=== PATIENT | male | born 1965 | race Caucasian/White ===

== ENCOUNTER 2018-08-09 13:09 | Inpatient (IN) ==
[2018-08-09] MEDS ORDERED: TUBERSOL ID ONE (15:12)
[2018-08-09] MEDS ORDERED: DESYREL PO PRN (15:12)
[2018-08-09] MEDS ORDERED: TYLENOL PO PRN (15:12)
[2018-08-09] MEDS ORDERED: PHENOBARBITAL IV PRN (15:12)
[2018-08-09] MEDS ORDERED: ZOFRAN IM PRN (15:12)
[2018-08-09] MEDS ORDERED: MOTRIN PO PRN (15:12)
[2018-08-09] MEDS ORDERED: MAALOX PLUS LIQUID PO PRN (15:12)
[2018-08-09] MEDS ORDERED: NICOTINE GUM BUCCAL PRN (15:12)
[2018-08-09] MEDS ORDERED: D5W 1,000 ML IV PRN (15:12)
[2018-08-09] MEDS ORDERED: SENOKOT PO PRN (15:12)
[2018-08-09] MEDS ORDERED: SEROQUEL PO PRN (15:12)
[2018-08-09] MEDS ORDERED: ZOFRAN ODT PO PRN (15:12)
[2018-08-09] MEDS ORDERED: IMODIUM PO PRN (15:12)
[2018-08-09] MEDS ORDERED: ZOFRAN IV PRN (15:12)
[2018-08-09] MEDS ORDERED: DULCOLAX PR PRN (15:12)
[2018-08-09 15:29] LABS: URINE SOURCE CLEAN CATCH
[2018-08-09] MEDS: NICODERM PATCH TD PRN (15:32)
[2018-08-09 15:46] LABS: BILIRUBIN URINE NEGATIVE (NEGATIVE); BLOOD URINE NEGATIVE (NEGATIVE); CLARITY CLEAR (CLEAR); COLOR YELLOW; GLUCOSE URINE NEGATIVE (NEGATIVE); KETONE URINE NEGATIVE (NEGATIVE); LEUKOCYTES URINE NEGATIVE (NEGATIVE); NITRITE URINE NEGATIVE (NEGATIVE); PH URINE 6.5; PROTEIN URINE NEGATIVE (NEGATIVE); UROBILINOGEN URINE NORMAL
[2018-08-09 15:47] LABS: HEMATOCRIT 38.9 % (42.0-52.0); MCH 34.2 PG (27-31); MCV 95.1 FL (81-99); MPV 9.2 FL (7.4-10.4); RBC 4.09 XMIL (4.7-6.1); RDW 12.5 % (11.5-14.5); WBC 6.92 X1000 (4.8-10.8)
[2018-08-09 15:50] LABS: UR AMPHETAMINES QUAL NONE DETECTED (NONE DETECT); UR BARBITUATES QUAL NONE DETECTED (NONE DETECT); UR BENZODIAZEPIN QUAL NONE DETECTED (NONE DETECT); UR CANNABINOIDS QUAL NONE DETECTED (NONE DETECT); UR COCAINE QUAL NONE DETECTED (NONE DETECT); UR METHADONE QUAL NONE DETECTED (NONE DETECT); UR METHAMPHETAMINE QUAL NONE DETECTED (NONE DETECT); UR OPIATES QUAL NONE DETECTED (NONE DETECT); UR OXYCODONE QUAL NONE DETECTED (NONE DETECT); UR PCP QUAL NONE DETECTED (NONE DETECT); UR PROPOXYPHENE QUAL NONE DETECTED (NONE DETECT); UR TCA QUAL NONE DETECTED (NONE DETECT)
[2018-08-09] MEDS ORDERED: BENTYL PO PRN (15:53)
[2018-08-09] MEDS ORDERED: ATARAX PO PRN (15:53)
[2018-08-09] MEDS ORDERED: SALINE LOCK IV FLUID XX ONE (15:53)
[2018-08-09] MEDS ORDERED: ROBAXIN PO PRN (15:53)
[2018-08-09 15:56] LABS: AGAP 16; ALKALINE PHOSPHATASE 131 U/L (32-122); AMYLASE 61 U/L (20-200); BUN 5 mg/dL (8-22); CALCIUM 8.1 mg/dL (8.8-10.2); CHLORIDE 93 mmol/L (98-107); COSMO 258; CREATININE 0.5 mg/dL (0.7-1.2); ESTIMATED GFR > 60; GLUCOSE 72 mg/dL (70-104); GOT 264 U/L (10-34); GPT 219 U/L (10-44); LIPASE 131 U/L (13-60); POTASSIUM 4.2 mmol/L (3.5-5.1); SODIUM 131 mmol/L (136-145); TCO2 22 mmol/L (25-35); TOTAL PROTEIN 6.9 g/dL (6.3-8.3)
[2018-08-09 16:03] LABS: INR 0.88; PROTIME 12.4 Seconds (11.0-16.0)
[2018-08-09] MEDS: LIBRIUM PO SCH ×2 (17:00→21:48)
[2018-08-09] MEDS ORDERED: M.V.I.-12 10 ML, FOLIC ACID 1 MG, MAGNESIUM SULFATE 1 GM, THIAMINE 100 MG in NS 1,000 ML IV ONE (17:00)
--- NOTE | 2018-08-09 23:49 | HISTORY AND PHYSICAL ---
CHIEF COMPLAINT: Nausea, vomiting. HISTORY OF PRESENT ILLNESS: Patient is a 53-year-old male who presented to [facility] program secondary to nausea, vomiting, abdominal pain. Notes that he has been using and abusing alcohol. Symptoms have become too severe. PAST MEDICAL HISTORY: Back injury in 2010, seizures 2 weeks ago that was felt to be alcohol related. SOCIAL HISTORY: Patient is . He is unemployed. Lives at home in [place]. History of blackouts that are likely alcohol related. MEDICATIONS: He is on no current medications. ALLERGIES: Sulfa. REVIEW OF SYSTEMS: CIWA score is elevated at 15 secondary to nausea, vomiting, paroxysmal sweating, tremors, frequent falls, blackouts and seizures that are alcohol related. Denies any chest pain, palpitations. Denies any fevers, chills. Denies dysuria, urinary frequency, urgency. Denies constipation, melena, hematochezia. Denies shortness of breath, cough, congestion. Denies any focalized weakness in extremities. SUBSTANCE ABUSE HISTORY: Patient has not been in treatment before. He has recently had a DUI. He has been drinking for 37 years. However, recently and he has been drinking more heavily since then. Of note, she also was an alcoholic. The patient started drinking at age 18, currently drinks at least 15 beers a day. FAMILY HISTORY: Noncontributory. PHYSICAL EXAMINATION: VITAL SIGNS: Reviewed and stable. Patient is awake, alert, oriented. Currently in no respiratory distress. HEENT: Normocephalic. NECK: Supple. CARDIOVASCULAR: Regular rate. No murmurs. CHEST: Clear and unlabored. EXTREMITIES: Moves all extremities. NEUROLOGIC: No focal changes. ASSESSMENT: 1. Nausea and vomiting. 2. Abdominal pain. 3. Myalgias. 4. Acute hepatitis. 5. Tremors. 6. Alcohol abuse, withdrawal and stabilization. PLAN: We will continue patient in the hospital. We will check hepatitis panel. Recheck his LFTs to ensure that they are coming down. Expected it is due to his alcoholism and we will follow. cc: Richard Dutta MD
[2018-08-10] MEDS: LIBRIUM PO SCH ×4 (03:31→21:12)
[2018-08-10] MEDS: PROTONIX PO SCH (05:59)
[2018-08-10 06:57] LABS: HEMATOCRIT 41.1 % (42.0-52.0); HEMOGLOBIN 14.5 g/dL (14.0-18.0); MCH 33.9 PG (27-31); MCHC 35.3 g/dL (33-37); MPV 9.7 FL (7.4-10.4); RBC 4.28 XMIL (4.7-6.1); RDW 12.8 % (11.5-14.5); WBC 6.71 X1000 (4.8-10.8)
[2018-08-10 07:33] LABS: AGAP 13; ALBUMIN 3.9 g/dL (3.5-5.0); ALKALINE PHOSPHATASE 136 U/L (32-122); BUN 6 mg/dL (8-22); CALCIUM 8.2 mg/dL (8.8-10.2); CHLORIDE 98 mmol/L (98-107); COSMO 270; CREATININE 0.6 mg/dL (0.7-1.2); ESTIMATED GFR > 60; GLUCOSE 80 mg/dL (70-104); GOT 271 U/L (10-34); GPT 224 U/L (10-44); MAGNESIUM 2.3 mg/dL (1.5-2.7); SODIUM 137 mmol/L (136-145); TCO2 26 mmol/L (25-35); TOTAL PROTEIN 6.9 g/dL (6.3-8.3)
[2018-08-10] MEDS: VITAMIN B-1 PO SCH (09:12)
[2018-08-10] MEDS: FOLIC ACID PO SCH (09:12)
[2018-08-10] MEDS: THERA M PLUS PO SCH (09:12)
[2018-08-10] MEDS: NICODERM PATCH TD PRN (14:15)
[2018-08-10] MEDS: IMODIUM PO PRN (16:25)
--- NOTE | 2018-08-11 01:31 | PROGRESS NOTE ---
DATE: 08/10/2018 SUBJECTIVE: Patient has no complaints. States overall he is feeling a little bit better. Still having some tremors, but these are improving. Still having muscle aches but improving. Denies any fevers or chills. PHYSICAL EXAMINATION: Vital Signs: Reviewed. Temperature 98 degrees, pulse 101, respiratory 18, BP 149/87. General: Patient is awake, alert, currently in no respiratory distress but is still somewhat ill-appearing. HEENT: Normocephalic. Neck: Supple. Cardiovascular: Regular rate. Chest: Clear. Abdomen: Soft. Extremities: Moves all extremities. Neurologic: No changes. ASSESSMENT: 1. Nausea and vomiting. 2. Abdominal pain. 3. Myalgias. 4. Paresthesias. 5. Paroxysmal sweating. 6. Alcohol abuse, withdrawal and stabilization. PLAN: We will continue patient in the hospital. Continue high-dose Librium taper. Continue counseling. Further orders as needed. cc: Richard Dutta MD
[2018-08-11] MEDS: LIBRIUM PO SCH ×4 (03:05→21:42)
[2018-08-11] MEDS: PROTONIX PO SCH (06:13)
[2018-08-11] MEDS: VITAMIN B-1 PO SCH (09:42)
[2018-08-11] MEDS: FOLIC ACID PO SCH (09:42)
[2018-08-11] MEDS: THERA M PLUS PO SCH (09:43)
[2018-08-11 10:28] LABS: HEPATITIS PROFILE ACUTE SEE COMMENTS
[2018-08-11] MEDS: NICODERM PATCH TD PRN (13:59)
[2018-08-11] MEDS: IMODIUM PO PRN (17:22)
--- NOTE | 2018-08-11 17:55 | PROGRESS NOTE ---
DATE: 08/11/2018 SUBJECTIVE: Patient notes that overall he is feeling a little bit better. He is having less tremors. He still is weak and having trouble getting out of bed on his own. Notes that he has back pain. States he would like something done for this when asked. States back pain started 4-5 years ago. PHYSICAL: Temperature 99.2, pulse 87, respiratory 18, BP 138/74.General: Patient is awake, he is in no respiratory distress. Tremors are improved. HEENT: Normocephalic. Neck: Supple. CV: Regular rate. Chest: Clear. Abdomen: Soft. Extremities: Moves all extremities. ASSESSMENT: 1. Nausea, vomiting. 2. Abdominal pain. 3. Myalgias. 4. Tremors. 5. Paresthesias. 6. Paroxysmal sweating. 7. Alcohol abuse withdrawal and stabilization. 8. Chronic back pain. PLAN: Will continue patient in the hospital, currently is on Librium 50 p.o. q.6. Will continue to wean as tolerated, continue counseling by myself. Full note dictated. cc: Richard Dutta MD
[2018-08-12] MEDS: LIBRIUM PO SCH ×2 (03:25→20:49)
[2018-08-12] MEDS: PROTONIX PO SCH (06:17)
[2018-08-12] MEDS: FOLIC ACID PO SCH (10:02)
[2018-08-12] MEDS: THERA M PLUS PO SCH (10:02)
[2018-08-12] MEDS: VITAMIN B-1 PO SCH (10:02)
--- NOTE | 2018-08-12 12:38 | PROGRESS NOTE ---
DATE: 08/12/2018 SUBJECTIVE: The patient is doing much better from an alcohol withdrawal standpoint. He is still very tired, fatigued, still weak and wobbly when he stands. PHYSICAL EXAMINATION: Vital Signs: Reviewed. General: He is awake, alert. He is in no distress. HEENT: Normocephalic. Neck: Supple. Cardiovascular: Regular rate. No murmurs. Chest: Clear, nonlabored. Abdomen: Soft, nondistended. Extremities: Moves all extremities. Neurologic: No changes. He is generally weak but has no focal weakness. ASSESSMENT: 1. Nausea and vomiting. 2. Abdominal pain. 3. Myalgias. 4. Paresthesias. 5. Paroxysmal sweating. 6. Opiate abuse withdrawal and admit for stabilization. 7. Alcohol abuse withdrawal and stabilization. cc: Richard Dutta MD
[2018-08-12] MEDS ORDERED: LIBRIUM PO SCH ×2 (13:00)
[2018-08-13] MEDS: PROTONIX PO SCH ×2 (06:15→06:19)
[2018-08-13] MEDS: VITAMIN B-1 PO SCH (09:28)
[2018-08-13] MEDS: THERA M PLUS PO SCH (09:28)
[2018-08-13] MEDS: FOLIC ACID PO SCH (09:28)
[2018-08-13] MEDS: LIBRIUM PO SCH (09:29)
[2018-08-13 09:35] VITALS: BP 121/85
[2018-08-13] MEDS ORDERED: REVIA PO SCH (10:45)
[2018-08-13] MEDS ORDERED: LIBRIUM PO SCH (21:00)
--- NOTE | 2018-08-14 04:24 | DISCHARGE SUMMARY ---
ADMISSION DATE: 08/09/2018 DISCHARGE DATE: 08/13/2018 DISCHARGE DIAGNOSIS: 1. Nausea, vomiting. 2. Abdominal pain. 3. Myalgias. 4. Tremors. 5. Alcohol abuse, withdrawal and stabilization. 6. Generalized weakness due to his alcoholism. CONSULTATIONS: None. PROCEDURES: None. BRIEF HOSPITAL COURSE: The patient is a 53-year-old male who presented to the hospital, treated in the usual fashion, placed on Another [facility] protocol with high-dose Librium taper. Continued to follow. On discharge, he is awake, alert. He is in no distress. Although he is still generally weak it is improving. He is able to ambulate to the restroom without any assistance at this point. We will continue to follow. Thankfully, he has improved. DISPOSITION: Patient will be discharged home. Discussed with patient that he needs to avoid all persons, places, situations which he has been drinking in the past. Discussed that he needs outpatient life counseling as well as drug counseling. We did start him on naltrexone for medication assisted therapy and he will continue this at home. Prescription was written. He states he has help at home and does not need home physical therapy currently. cc: Richard Dutta MD
== END 2018-08-13 12:00 | disposition home or self-care (01) | DRG 897 ==
LOC: P.MEDSURG 13:25
PROVIDERS: ADMIT Family Medicine; ATTEND Family Medicine
CPT/HCPCS: 80053; 80074; 80104; 80301; 80305; 80307; 80320; 82055; 82150; 83690; 83735; 85027; 85610; 86580; A9270; G0431; G0434; G0477; G0480; G6040; J3411; J3475; J7030